=== PATIENT | female | born 1950 | race Caucasian/White ===

== ENCOUNTER 2023-09-13 12:16 | Emergency (ER) | payer OTHER ==
[~2023-09-13] VITALS: Ht 154.9 cm; Wt 59.3 kg
[2023-09-13 12:17] VITALS: BP 143/102; PULSE 99; RESP 16; TEMP 98; O2SAT 99
[2023-09-13] MEDS ORDERED: AMOX-117 PO (12:24)
== END 2023-09-13 12:44 | disposition home or self-care (01) ==
LOC: ER 12:16
DX: S61.451A Open bite of right hand, initial encounter (principal); S41.151A Open bite of right upper arm, initial encounter; W54.0XXA Bitten by dog, initial encounter; Y93.89 Activity, other specified; Y92.89 Other specified places as the place of occurrence of the external cause; Y99.8 Other external cause status
CPT/HCPCS: 99283